=== PATIENT | female | born 1955 | race Caucasian/White ===

== ENCOUNTER 2019-01-02 05:43 | Emergency (ER) | payer BC, MEDICAID ==
[2019-01-02] MEDS ORDERED: Sulfamethoxazole/Trimethoprim 800-160 MG Tab PO ONE (05:44)
--- NOTE | 2019-01-02 06:42 | EDM.PDOC ---
ED HPI GENERAL MEDICAL PROBLEM - General Chief Complaint: Genitourinary Problem Stated Complaint: POSS UTI Time Seen by Provider: 01/02/19 06:10 Source of Information: Reports: Patient History Limitations: Reports: No Limitations - History of Present Illness INITIAL COMMENTS - FREE TEXT/NARRATIVE: Patient presents with concern for acute onset of constant urination, but only goes a little bit. Has to hurry to the bathroom when she feels need to go. Woke up with symptoms about 3 AM this morning. No previous history of UTIs. She has no vaginal discharge, no fever, no pain in her back, no nausea or vomiting. Notes that her urine is discolored and pink - Related Data Allergies Allergy/AdvReac Type Severity Reaction Status Date / Time cephalexin [From Keflex] Allergy Rash Verified 01/02/19 06:35 Home Meds: Home Meds Lisinopril [Prinivil] 40 mg PO DAILY 07/08/16 [History] Sertraline HCl 100 mg PO DAILY 07/08/16 [History] atorvaSTATin [Lipitor] 40 mg PO DAILY 07/08/16 [History] metFORMIN [Glucophage] 1,000 mg PO BID 07/08/16 [History] Aspirin [Adult Low Dose Aspirin EC] 81 mg PO DAILY 01/03/19 [History] Levothyroxine 200 mcg PO DAILY 01/03/19 [History] Past Medical History HEENT History: Reports: Cataract, Impaired Vision Cardiovascular History: Reports: High Cholesterol, Hypertension 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: , 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 Musculoskeletal History: Reports: Arthritis, Back Pain, Chronic Psychiatric History: Reports: Anxiety, Dementia Endocrine/Metabolic History: Reports: Diabetes, Type II - Infectious Disease History Infectious Disease History: Reports: Chicken Pox, Measles - Past Surgical History HEENT Surgical History: Reports: Other (See Below) Musculoskeletal Surgical History: Reports: Knee Replacement Social & Family History - Family History Family Medical History: Noncontributory - Tobacco Use Smoking Status *Q: Never Smoker - Caffeine Use Caffeine Use: Reports: Coffee, Soda, Tea - Alcohol Use Alcohol Use History: No - Recreational Drug Use Recreational Drug Use: No - Living Situation & Occupation Living situation: Reports: ED ROS GENERAL - Review of Systems Review Of Systems: ROS reveals no pertinent complaints other than HPI. ED EXAM, GENERAL - Physical Exam Exam: See Below Free Text/Narrative:: Gen.: Alert, pleasant no acute distress. Constantly in bathroom all here. No costovertebral angle tenderness. Lungs clear, heart regular, abdomen positive bowel sounds, soft nondistended nontender. Suprapubic discomfort with palpation Course - Vital Signs Text/Narrative:: Acute cystitis, urinalysis also shows potentially infected. Patient with a history of allergy to some kind of antibiotic, doesn't remember which one. Review chart, patient Keflex 3 years ago and when asked confirms that this is medication she got a bad rash from. No history of allergy to amoxicillin. Also no history of allergies to sulfa drugs. Will give take-home pack of Bactrim DS twice a day for 5 days. Advised could burr picker Pyridium at the pharmacy later today to help with the discomfort. Encouraged to drink lots of water, asked about cranberry which I would recommend the pills, not the juice given her diabetes. Discussed signs or symptoms that would probably need for immediate follow-up and all questions are answered. She is in agreement with this plan Last Recorded V/S: Last Vital Signs Temp 36.6 C 01/02/19 06:45 Pulse 79 01/02/19 06:45 Resp 18 01/02/19 06:45 BP 124/73 01/02/19 06:45 Pulse Ox 98 01/02/19 06:45 - Orders/Labs/Meds Labs: Laboratory Tests 01/02/19 Range/Units 05:50 Urine Color Red (YELLOW) Urine Appearance Slightly cloudy (CLEAR) Urine pH 5.0 (5.0-6.5) Ur Specific [place] 1.020 (1.010-1.025) Urine Protein 30 H (NEGATIVE) mg/dL Urine Glucose (UA) >1000 H (NORMAL) mg/dL Urine Ketones Negative (NEGATIVE) mg/dL Urine Occult Blood Large H (NEGATIVE) Urine Nitrite Negative (NEGATIVE) Urine Bilirubin Negative (NEGATIVE) Urine Urobilinogen Normal (NEGATIVE) mg/dL Ur Leukocyte Esterase Moderate H (NEGATIVE) Urine RBC Packed H (0-5) Urine WBC 10-20 H (0-5) Ur Squamous Epith Cells Rare (NS,R,O) Urine Bacteria Few H (NS) Departure - Departure Time of Disposition: 06:41 Disposition: Home, Self-Care 01 Condition: Good Clinical Impression: Cystitis - Discharge Information *PRESCRIPTION DRUG MONITORING PROGRAM REVIEWED*: Not Applicable *COPY OF PRESCRIPTION DRUG MONITORING REPORT IN PATIENT DOLORES: Not Applicable Instructions: Urinary Tract Infection, Adult, [id number], Sulfamethoxazole; Trimethoprim, SMX-TMP tablets Referrals: Lars Phillips MD [Primary Care Provider] - Forms: ED Department Discharge Additional Instructions: to help with symptoms: drink lots of water can try cranberry pills if want Pyridium (also called azo) is available over the counter at most pharmacies, it will turn your urine orange but numbs your bladder to help with symptoms
[2019-01-03 05:39] VITALS: BP 124/73
== END 2019-01-02 06:55 | disposition home or self-care (01) ==
LOC: FB.ED 05:43
DX: N30.00 Acute cystitis without hematuria (principal); E78.00 Pure hypercholesterolemia, unspecified; I10 Essential (primary) hypertension; F41.9 Anxiety disorder, unspecified; E11.9 Type 2 diabetes mellitus without complications; Z79.899 Other long term (current) drug therapy; Z79.82 Long term (current) use of aspirin; Z79.84 Long term (current) use of oral hypoglycemic drugs
CPT/HCPCS: 81001; 87086; 87088; 87186; 99283; A9270

== ENCOUNTER 2019-09-03 17:22 | Emergency (ER) | payer BC ==
[2019-09-03] MEDS ORDERED: Acetaminophen/HYDROcodone 325-5 MG Tab PO ONE (17:23)
[2019-09-03] MEDS ORDERED: Ondansetron 4 MG Tab.DIS PO ONE ×2 (17:23→18:29)
--- NOTE | 2019-09-03 17:51 | EDM.PDOC ---
ED HPI GENERAL MEDICAL PROBLEM - General Chief Complaint: Back Pain or Injury Stated Complaint: LOWER R SIDE BACK PAIN Time Seen by Provider: 09/03/19 17:48 Source of Information: Reports: Patient History Limitations: Reports: No Limitations - History of Present Illness INITIAL COMMENTS - FREE TEXT/NARRATIVE: 63-year-old female who reports she awoke from a nap approximate 4 PM today with pain in her right lower back right flank and radiating around to her right groin. It was a constant and somewhat sharp and cramping type of pain that seemed to wax and wane. She states that she could not really find a comfortable position. It did seem to be a little worse with movement and with palpation. She rated the pain at presentation here at a 6/10. She has had no nausea or vomiting. She has been able to eat and drink normally today. She has had no trauma. As reports that beginning yesterday she started having some feelings that she had to urinate more frequently and she had some discomfort with urination. She has had no hematuria. Other associated signs or symptoms. There are no other modifying factors. Onset: Other (Yesterday evening with urinary symptoms and today at 4 PM with the pain) Duration: Constant, Waxing/Waning Location: Reports: Abdomen, Back Quality: Reports: Pressure (And cramping), Sharp Severity: Moderate (to severe) Improves with: Reports: None Worsens with: Reports: Other (Palpation), Movement Context: Reports: Other (As above) Associated Symptoms: Reports: No Other Symptoms (Except as above) Treatments QA TEST ANALYST: Reports: Heat Therapy, NSAIDS (Naproxen) Right Lower Back Pain Score (Numeric/FACES): 6 - Related Data Allergies Allergy/AdvReac Type Severity Reaction Status Date / Time cephalexin [From Keflex] Allergy Rash Verified 01/02/19 06:35 Home Meds: Home Meds Lisinopril [Prinivil] 40 mg PO DAILY 07/08/16 [History] Sertraline HCl 100 mg PO DAILY 07/08/16 [History] atorvaSTATin [Lipitor] 40 mg PO DAILY 07/08/16 [History] metFORMIN [Glucophage] 1,000 mg PO BID 07/08/16 [History] Aspirin [Adult Low Dose Aspirin EC] 81 mg PO DAILY 01/03/19 [History] Levothyroxine 200 mcg PO DAILY 01/03/19 [History] Acetaminophen/HYDROcodone [[place] 325-5 MG] 1 - 2 tab PO Q6H PRN #8 tab 09/03/19 [Rx] Ciprofloxacin [Ciprofloxacin HCl] 500 mg PO BID 7 Days #14 tab 09/03/19 [Rx] Past Medical History HEENT History: Reports: Cataract, Impaired Vision Cardiovascular History: Reports: High Cholesterol, Hypertension 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 Musculoskeletal History: Reports: Arthritis, Back Pain, Chronic Psychiatric History: Reports: Anxiety, Depression Endocrine/Metabolic History: Reports: Diabetes, Type II Other Endocrine/Metabolic History: Takes thyroid medication. - Infectious Disease History Infectious Disease History: Reports: Chicken Pox, Measles - Past Surgical History GI Surgical History: Reports: Colonoscopy Female Surgical History: Reports: Tubal Ligation Musculoskeletal Surgical History: Reports: Knee Replacement (Left) Social & Family History - Tobacco Use Smoking Status *Q: Never Smoker - Caffeine Use Caffeine Use: Reports: Coffee, Soda, Tea - Alcohol Use Alcohol Use History: No - Living Situation & Occupation Living situation: Reports: ED ROS GENERAL - Review of Systems Review Of Systems: See Below Constitutional: Reports: No Symptoms HEENT: Reports: No Symptoms Respiratory: Reports: No Symptoms Cardiovascular: Reports: No Symptoms GI/Abdominal: Reports: Abdominal Pain. Denies: Diarrhea, Nausea, Vomiting : Reports: Dysuria, Flank Pain, Urgency. Denies: Hematuria Musculoskeletal: Reports: Back Pain Skin: Reports: No Symptoms Neurological: Reports: No Symptoms Hematologic/Lymphatic: Reports: No Symptoms Immunologic: Reports: No Symptoms ED EXAM,LOWER BACK PAIN/INJURY - Physical Exam Exam: See Below Exam Limited By: No Limitations General Appearance: Alert, WD/WN, Moderate Distress (Appears in some pain. She does appear nontoxic.) Eye Exam: Bilateral Eye: EOMI, Normal Inspection, PERRL Ears: Normal External Exam, Hearing Grossly Normal Nose: Normal Inspection, Normal Mucosa, No Blood Throat/Mouth: Normal Inspection, Normal Lips, Normal Oropharynx, Normal Voice, No Airway Compromise Head: Atraumatic, Normocephalic Neck: Normal Inspection, Supple, Non-Tender, Full Range of Motion Respiratory/Chest: No Respiratory Distress, Lungs Clear, Normal Breath Sounds, No Accessory Muscle Use, Chest Non-Tender Cardiovascular: Normal Peripheral Pulses, Regular Rate, Rhythm, No Murmur GI/Abdominal: Normal Bowel Sounds, Soft, No Organomegaly, Tender (Mildly tender in an area. No hernia.) Back Exam: CVA Tenderness (R) (Some tenderness along the right CVA area and just below it.). No: Muscle Spasm, Vertebral Tenderness Extremities: Normal Inspection, Normal Range of Motion, Non-Tender, No Pedal Edema, Normal Capillary Refill Neurological: Alert, Normal Dorsiflexion, CN II-XII Intact, Normal Plantar Flexion, Normal Gait, Normal Reflexes, No Motor/Sensory Deficits, Oriented x 3 Skin Exam: Warm, Dry, Intact, Normal Color, No Rash Course - Vital Signs Last Recorded V/S: Last Vital Signs Temp 36.7 C 09/03/19 17:42 Pulse 73 09/03/19 17:42 Resp 18 09/03/19 17:42 BP 132/92 H 09/03/19 17:42 Pulse Ox 100 09/03/19 17:42 - Orders/Labs/Meds Orders: Active Orders 24 hr Category Date Time Status Abdomen Pelvis wo Cont [CT] Stat Exams 09/03/19 18:02 Taken CULTURE URINE [RM] Stat Lab 09/03/19 19:29 Ordered Labs: Laboratory Tests 09/03/19 09/03/19 09/03/19 Range/Units 18:06 18:10 18:10 WBC 7.8 (4.5-12.0) X10-3/uL RBC 5.13 (3.23-5.20) x10(6)uL Hgb 15.6 H (11.5-15.5) g/dL Hct 45.0 (30.0-51.3) % MCV 87.7 (80-96) fL MCH 30.5 (27.7-33.6) pg MCHC 34.8 (32.2-35.4) g/dL RDW 12.9 (11.5-15.5) % Plt Count 182 (125-369) X10(3)uL MPV 8.4 (7.4-10.4) fL Neut % (Auto) 75.6 (46-82) % Lymph % (Auto) 20.6 (13-37) % Mckenzie % (Auto) 2.6 L (4-12) % Eos % (Auto) 1 (1.0-5.0) % Baso % (Auto) 0 (0-2) % Neut # (Auto) 5.9 (1.6-8.3) # Lymph # (Auto) 1.6 (0.6-5.0) # Mckenzie # (Auto) 0.2 (0.0-1.3) # Eos # (Auto) 0.1 (0.0-0.8) # Baso # (Auto) 0.0 (0.0-0.2) # Sodium 140 (135-145) mmol/L Potassium 3.9 (3.5-5.3) mmol/L Chloride 102 (100-110) mmol/L Carbon Dioxide 29 (21-32) mmol/L BUN 15 (7-18) mg/dL Creatinine 0.8 (0.55-1.02) mg/dL Est Cr Clr Drug Dosing 61.09 mL/min Estimated GFR (MDRD) > 60 (>60) BUN/Creatinine Ratio 18.8 (9-20) Glucose 261 H (80-116) mg/dL Calcium 8.9 (8.6-10.2) mg/dL Total Bilirubin 0.9 (0.1-1.3) mg/dL AST 15 (5-25) IU/L ALT 23 (12-36) U/L Alkaline Phosphatase 139 H (56-112) IU/L C-Reactive Protein (0.5-0.9) mg/dL Total Protein 7.2 (6.0-8.0) g/dL Albumin 4.0 (3.2-4.6) g/dL Globulin 3.2 g/dL Albumin/Globulin Ratio 1.3 Urine Color Yellow (YELLOW) Urine Appearance Clear (CLEAR) Urine pH 5.0 (5.0-6.5) Ur Specific [place] 1.010 (1.010-1.025) Urine Protein Negative (NEGATIVE) mg/dL Urine Glucose (UA) 100 H (NORMAL) mg/dL Urine Ketones Negative (NEGATIVE) mg/dL Urine Occult Blood Negative (NEGATIVE) Urine Nitrite Negative (NEGATIVE) Urine Bilirubin Negative (NEGATIVE) Urine Urobilinogen Normal (NEGATIVE) mg/dL Ur Leukocyte Esterase Small H (NEGATIVE) Urine RBC 0-5 (0-5) Urine WBC 0-5 (0-5) Ur Squamous Epith Cells Few H (NS,R,O) Urine Bacteria Rare H (NS) 09/03/19 Range/Units 18:10 WBC (4.5-12.0) X10-3/uL RBC (3.23-5.20) x10(6)uL Hgb (11.5-15.5) g/dL Hct (30.0-51.3) % MCV (80-96) fL MCH (27.7-33.6) pg MCHC (32.2-35.4) g/dL RDW (11.5-15.5) % Plt Count (125-369) X10(3)uL MPV (7.4-10.4) fL Neut % (Auto) (46-82) % Lymph % (Auto) (13-37) % Mckenzie % (Auto) (4-12) % Eos % (Auto) (1.0-5.0) % Baso % (Auto) (0-2) % Neut # (Auto) (1.6-8.3) # Lymph # (Auto) (0.6-5.0) # Mckenzie # (Auto) (0.0-1.3) # Eos # (Auto) (0.0-0.8) # Baso # (Auto) (0.0-0.2) # Sodium (135-145) mmol/L Potassium (3.5-5.3) mmol/L Chloride (100-110) mmol/L Carbon Dioxide (21-32) mmol/L BUN (7-18) mg/dL Creatinine (0.55-1.02) mg/dL Est Cr Clr Drug Dosing mL/min Estimated GFR (MDRD) (>60) BUN/Creatinine Ratio (9-20) Glucose (80-116) mg/dL Calcium (8.6-10.2) mg/dL Total Bilirubin (0.1-1.3) mg/dL AST (5-25) IU/L ALT (12-36) U/L Alkaline Phosphatase (56-112) IU/L C-Reactive Protein < 0.2 L (0.5-0.9) mg/dL Total Protein (6.0-8.0) g/dL Albumin (3.2-4.6) g/dL Globulin g/dL Albumin/Globulin Ratio Urine Color (YELLOW) Urine Appearance (CLEAR) Urine pH (5.0-6.5) Ur Specific [place] (1.010-1.025) Urine Protein (NEGATIVE) mg/dL Urine Glucose (UA) (NORMAL) mg/dL Urine Ketones (NEGATIVE) mg/dL Urine Occult Blood (NEGATIVE) Urine Nitrite (NEGATIVE) Urine Bilirubin (NEGATIVE) Urine Urobilinogen (NEGATIVE) mg/dL Ur Leukocyte Esterase (NEGATIVE) Urine RBC (0-5) Urine WBC (0-5) Ur Squamous Epith Cells (NS,R,O) Urine Bacteria (NS) Meds: Medications Discontinued Medications Generic Name Dose Route Start Last Admin Trade Name Freq PRN Reason Stop Dose Admin Ciprofloxacin 500 mg 09/03/19 19:30 09/03/19 19:51 Ciprofloxacin Hcl PO 09/03/19 19:31 500 mg ONETIME ONE Administration Morphine Sulfate 10 mg 09/03/19 18:29 09/03/19 18:34 Morphine IM 09/03/19 18:30 10 mg ONETIME ONE Administration Ondansetron HCl 4 mg 09/03/19 18:29 09/03/19 18:34 Zofran Odt PO 09/03/19 18:30 4 mg ONETIME ONE Administration - Radiology Interpretation Free Text/Narrative:: CT scan of abdomen and pelvis showed diffuse colonic fecal retention, a normal- appearing appendix and no evidence of urinary tract stones. - Re-Assessments/Exams Free Text/Narrative Re-Assessment/Exam: 09/03/19 19:35: The patient CT scan shows no evidence of kidney stone/ureteral stone. Her urine did have some evidence of infection and I sent the urine for culture. She has been having some urinary symptoms. I am unsure why the patient is having the pain radiating from her back to her right groin. It could be musculoskeletal in nature. It could also be a urinary tract infection. It could also be that she had a small kidney stone that has passed. The patient was given morphine 10 mg IM in the emergency department and she has had good reduction in her pain. I will place the patient on ciprofloxacin 500 mg twice a day for 7 days to treat for a potential infection. I will also give the patient hydrocodone 5/325 that she may use for moderate to severe pain. She should also take ibuprofen 600 mg by mouth every 6 hours as needed for pain. She should also follow-up with her primary doctor. 09/03/19 20:00: Patient was being discharged and she developed nausea with vomiting. I will give the patient Phenergan IM and will send her home with a Zofran take-home pack. Departure - Departure Time of Disposition: 19:50 Disposition: Home, Self-Care 01 Condition: Good Clinical Impression: Right flank pain Lower back pain Qualifiers: Chronicity: acute Back pain laterality: right Sciatica presence: unspecified whether sciatica present Qualified Code(s): M54.5 - Low back pain UTI (urinary tract infection) Qualifiers: Urinary tract infection type: site unspecified Hematuria presence: with hematuria Qualified Code(s): N39.0 - Urinary tract infection, site not specified - Discharge Information Prescriptions: Acetaminophen/HYDROcodone [[place] 325-5 MG] 1 - 2 tab PO Q6H PRN #8 tab PRN Reason: Moderate to severe pain Ciprofloxacin [Ciprofloxacin HCl] 500 mg PO BID 7 Days #14 tab Instructions: Urinary Tract Infection, Adult, [id number], Flank Pain, Adult, [id number] Referrals: Lars Phillips MD [Primary Care Provider] - Forms: ED Department Discharge Additional Instructions: Your blood tests were reassuringly normal except for your blood glucose which was 261. Your urine test showed some evidence of infection and I sent it for culture. The CT scan of your abdomen and pelvis showed no definite abnormality. It did suggest that you had constipation but there was no evidence of kidney stones or appendicitis. I am unsure why you are having the pain. This could be related to a urinary tract infection. It could also be the you had a kidney stone but passed it already. It could also be related to some problem in your back causing pain to go from your back to your right groin area. No strenuous activity for the next few days. Increase your fluid intake. You may take ibuprofen 600 mg by mouth every 6 hours as needed for pain. Medication as prescribed (ciprofloxacin 500 mg, hydrocodone 5/325). Follow-up with your primary doctor if you or having persisting symptoms. Back to the emergency department for fever, worsening abdominal pain, unrelenting vomiting or any other concerning sign or symptom. Sepsis Event Note - Evaluation Sepsis Screening Result: No Definite Risk - Focused Exam Vital Signs: Vital Signs Temp Pulse Resp BP Pulse Ox 09/03/19 17:42 36.7 C 73 18 132/92 H 100 Date Exam was Performed: 09/03/19 Time Exam was Performed: 19:58 - My Orders Last 24 Hours: My Active Orders 09/03/19 18:02 Abdomen Pelvis wo Cont [CT] Stat 09/03/19 19:29 CULTURE URINE [RM] Stat - Assessment/Plan Last 24 Hours: My Active Orders 09/03/19 18:02 Abdomen Pelvis wo Cont [CT] Stat 09/03/19 19:29 CULTURE URINE [RM] Stat
[2019-09-03] MEDS ORDERED: Morphine 10 MG/ML SDV IM ONE (18:29)
[2019-09-03] MEDS ORDERED: Ciprofloxacin 500 MG Tab PO ONE (19:30)
[2019-09-03] MEDS ORDERED: Promethazine 25 MG/ML SDV IM ONE (20:05)
[2019-09-03 20:22] VITALS: BP 133/68; PULSE 68
== END 2019-09-03 20:19 | disposition home or self-care (01) ==
LOC: FB.ED 17:22
DX: N39.0 Urinary tract infection, site not specified (principal); M54.5 Low back pain; E78.00 Pure hypercholesterolemia, unspecified; I10 Essential (primary) hypertension; E11.36 Type 2 diabetes mellitus with diabetic cataract; H26.9 Unspecified cataract; F32.9 Major depressive disorder, single episode, unspecified; F41.9 Anxiety disorder, unspecified; Z88.1 Allergy status to other antibiotic agents; Z79.899 Other long term (current) drug therapy; Z79.84 Long term (current) use of oral hypoglycemic drugs; Z79.82 Long term (current) use of aspirin
CPT/HCPCS: 36415; 74176; 80053; 81001; 85025; 86140; 87086; 96372; 99284; A9270; J2270; J2550

== ENCOUNTER 2022-06-09 10:40 | Emergency (ER) | payer BC, MEDICAID ==
[2022-06-09] MEDS ORDERED: Lactated Ringers 1,000 ML IV ONE (10:50)
[2022-06-09] MEDS ORDERED: hydrOXYzine HCl 50 MG/ML SDV IM ONE (10:50)
[2022-06-09 11:19] LABS: ESTIMATED GFR 82 mL/min (>60)
[2022-06-09] MEDS ORDERED: Glucagon,Human Recombinant 1 MG Vial IM PRN ×2 (11:22→12:54)
[2022-06-09] MEDS ORDERED: Insulin Regular, Human 100 Units/ML 3 ML Vial SUBCUT ONE ×2 (11:22→12:54)
[2022-06-09] MEDS ORDERED: 50% Dextrose in Water 50 ML Syringe IVPUSH PRN ×2 (11:22→12:54)
[2022-06-09 13:31] VITALS: BP 148/72; PULSE 86
== END 2022-06-09 13:48 | disposition home or self-care (01) ==
LOC: FB.ED 10:40
DX: H83.09 Labyrinthitis, unspecified ear (principal); E11.65 Type 2 diabetes mellitus with hyperglycemia; E78.00 Pure hypercholesterolemia, unspecified; I10 Essential (primary) hypertension; M19.90 Unspecified osteoarthritis, unspecified site; Z88.1 Allergy status to other antibiotic agents; Z79.82 Long term (current) use of aspirin; Z79.84 Long term (current) use of oral hypoglycemic drugs; Z79.899 Other long term (current) drug therapy
CPT/HCPCS: 36415; 70450; 80048; 82947; 85027; 96361; 96372; 96374; 99285-25; J1815-GY; J3360; J3410; J7120

== ENCOUNTER 2023-03-23 10:14 | Emergency (ER) | payer BC ==
[2023-03-23 10:49] LABS: BASOPHILS PERCENT AUTO 0.4 % (0.2-1.5); EOSINOPHILS PERCENT AUTO 0.6 % (0.6-8.1); HEMATOCRIT 40.8 % (34.2-48.2); HEMOGLOBIN 14.6 g/dL (11.4-15.5); LYMPHOCYTES ABSOLUTE AUTO 1.6 x10-3/uL (1.0-4.4); LYMPHOCYTES PERCENT AUTO 21.4 % (18.4-52.1); MEAN CORPUSCULAR HEMOGLOBIN 31.3 pg (23.9-33.9); MEAN CORPUSCULAR HGB CONC 35.9 g/dL (31.9-34.8); MEAN CORPUSCULAR VOLUME 87.3 fL (76.7-100.5); MEAN PLATELET VOLUME 9.1 fL (7.1-12.4); MONOCYTES ABSOLUTE AUTO 0.3 x10-3/uL (0.3-1.0); MONOCYTES PERCENT AUTO 4.1 % (4.4-15.7); NEUTROPHILS ABSOLUTE AUTO 5.5 x10-3/uL (1.5-6.3); NEUTROPHILS PERCENT AUTO 73.5 % (30.8-76.2); PLATELET COUNT,PLT 157 x10(3)uL (151-488); RED BLOOD CELL COUNT 4.67 x10(6)uL (3.60-5.20); RED CELL DISTRIBUTION WIDTH 13.8 % (12.3-16.5); WHITE BLOOD CELL COUNT,WBC 7.5 x10-3/uL (3.0-10.3)
[2023-03-23 10:56] LABS: INR 1.01 (1.00-1.24); PROTHROMBIN TIME 10.4 sec (9.0-11.1)
[2023-03-23 10:57] LABS: A/G RATIO 1.1; ALANINE AMINOTRANSFERASE,ALT 22 U/L (12-36); ALBUMIN 3.7 g/dL (3.2-4.6); ALKALINE PHOSPHATASE 166 IU/L (56-112); ASPARTATE AMNIOTRANSFERASE,AST 14 IU/L (5-25); BILIRUBIN TOTAL 1.3 mg/dL (0.1-1.3); BLOOD UREA NITROGEN,BUN 16 mg/dL (7-18); CALCIUM 9.4 mg/dL (8.6-10.2); CARBON DIOXIDE,CO2 26 mmol/L (21-32); CHLORIDE,CL 99 mmol/L (100-110); CREATININE 0.8 mg/dL (0.55-1.02); ESTIMATED GFR 82 mL/min (>60); POTASSIUM,K 4.1 mmol/L (3.5-5.3); PROTEIN TOTAL,TP 7.1 g/dL (6.0-8.0); SODIUM,NA 135 mmol/L (135-145)
[2023-03-23 10:58] LABS: PTT,PARTIAL THROMBOPLSTIN TIME 23.5 SECONDS (24.4-33.2)
[2023-03-23 10:59] LABS: GLUCOSE RANDOM 445 mg/dL (80-116)
[2023-03-23 16:52] VITALS: BP 181/86; PULSE 90
== END 2023-03-23 12:08 ==
LOC: FB.ED 10:14
DX: I63.9 Cerebral infarction, unspecified (principal); I10 Essential (primary) hypertension; E78.5 Hyperlipidemia, unspecified; M19.90 Unspecified osteoarthritis, unspecified site; E11.9 Type 2 diabetes mellitus without complications; Z88.1 Allergy status to other antibiotic agents; Z88.2 Allergy status to sulfonamides; Z79.899 Other long term (current) drug therapy; Z79.82 Long term (current) use of aspirin; Z79.84 Long term (current) use of oral hypoglycemic drugs
CPT/HCPCS: 36415; 70450; 71045; 80053; 84484; 85025; 85610; 85730; 93005; 99285

== ENCOUNTER 2023-10-29 11:50 | Emergency (ER) | payer MEDICARE, BC ==
[2023-10-29 12:16] LABS: BASOPHILS PERCENT AUTO 0.4 % (0.2-1.5); EOSINOPHILS ABSOLUTE AUTO 0.1 x10-3/uL (0.0-0.8); HEMATOCRIT 38.6 % (34.2-48.2); HEMOGLOBIN 13.4 g/dL (11.4-15.5); LYMPHOCYTES ABSOLUTE AUTO 1.6 x10-3/uL (1.0-4.4); MEAN CORPUSCULAR HEMOGLOBIN 32.3 pg (23.9-33.9); MEAN CORPUSCULAR HGB CONC 34.7 g/dL (31.9-34.8); MEAN CORPUSCULAR VOLUME 93.2 fL (76.7-100.5); MONOCYTES ABSOLUTE AUTO 0.3 x10-3/uL (0.3-1.0); MONOCYTES PERCENT AUTO 4.1 % (4.4-15.7); NEUTROPHILS ABSOLUTE AUTO 5.8 x10-3/uL (1.5-6.3); NEUTROPHILS PERCENT AUTO 73.5 % (30.8-76.2); PLATELET COUNT,PLT 129 x10(3)uL (151-488); RED BLOOD CELL COUNT 4.15 x10(6)uL (3.60-5.20); RED CELL DISTRIBUTION WIDTH 15.6 % (12.3-16.5); WHITE BLOOD CELL COUNT,WBC 7.8 x10-3/uL (3.0-10.3)
[2023-10-29 12:19] LABS: BLOOD UREA NITROGEN,BUN 16 mg/dL (7-18); CALCIUM 9.1 mg/dL (8.6-10.2); CARBON DIOXIDE,CO2 31 mmol/L (21-32); CHLORIDE,CL 101 mmol/L (100-110); CREATININE 0.8 mg/dL (0.55-1.02); EST CRCL DRUG DOSING (CG) 57.99 mL/min; ESTIMATED GFR 82 mL/min (>60); GLUCOSE RANDOM 173 mg/dL (80-116); POTASSIUM,K 3.7 mmol/L (3.5-5.3); SODIUM,NA 139 mmol/L (135-145)
[2023-10-29 12:23] LABS: INR 1.03 (1.00-1.24); PROTHROMBIN TIME 10.7 sec (9.0-11.1)
[2023-10-29 12:24] LABS: A/G RATIO 0.8; ALANINE AMINOTRANSFERASE,ALT 64 U/L (12-36); ALBUMIN 3.3 g/dL (3.2-4.6); ALKALINE PHOSPHATASE 283 IU/L (56-112); ASPARTATE AMNIOTRANSFERASE,AST 42 IU/L (5-25); BILIRUBIN TOTAL 0.9 mg/dL (0.1-1.3); PROTEIN TOTAL,TP 7.4 g/dL (6.0-8.0)
[2023-10-29 12:25] LABS: PTT,PARTIAL THROMBOPLSTIN TIME 27.4 SECONDS (24.4-33.2)
[2023-10-29 12:31] LABS: TROPONIN I 5.3 pg/mL (4.0-60.3)
[2023-10-29] MEDS: Aspirin 81 MG Tab.Chew PO STA (12:33)
[2023-10-29 12:43] VITALS: BP 161/83; PULSE 84
== END 2023-10-29 12:50 | disposition home or self-care (01) ==
LOC: FB.ED 11:50
DX: R07.2 Precordial pain (principal); I10 Essential (primary) hypertension; E11.9 Type 2 diabetes mellitus without complications; E78.00 Pure hypercholesterolemia, unspecified; Z88.1 Allergy status to other antibiotic agents; Z88.2 Allergy status to sulfonamides; Z79.899 Other long term (current) drug therapy; Z79.82 Long term (current) use of aspirin; Z79.51 Long term (current) use of inhaled steroids; Z79.84 Long term (current) use of oral hypoglycemic drugs; Z79.4 Long term (current) use of insulin
CPT/HCPCS: 36415; 71045; 80053; 83880; 84484; 85025; 85379; 85610; 85730; 93005; 93010; 99283; 99285; A9270-GY

== ENCOUNTER 2025-06-17 21:19 | Emergency (ER) | payer BC, MEDICARE ==
[2025-06-17] MEDS: Insulin Regular, Human 100 Units/ML 10 ML Vial SUBCUT ONE (22:10)
[2025-06-17 23:29] VITALS: BP 148/91; PULSE 62
== END 2025-06-17 23:15 | disposition home or self-care (01) ==
LOC: FB.ED 21:19
DX: E11.65 Type 2 diabetes mellitus with hyperglycemia (principal); B37.31 Acute candidiasis of vulva and vagina; I10 Essential (primary) hypertension; E78.00 Pure hypercholesterolemia, unspecified; Z86.73 Personal history of transient ischemic attack (TIA), and cerebral infarction without residual deficits; Z79.84 Long term (current) use of oral hypoglycemic drugs; Z79.82 Long term (current) use of aspirin; Z79.890 Hormone replacement therapy; Z88.2 Allergy status to sulfonamides; Z88.1 Allergy status to other antibiotic agents
CPT/HCPCS: 82947; 99284; A9270

== ENCOUNTER 2025-06-19 06:22 | Emergency (ER) | payer MEDICARE ==
[2025-06-19] MEDS ORDERED: Sodium Chloride 0.9% 10 ML Syringe FLUSH PRN (06:43)
[2025-06-19] MEDS: Ondansetron 4 MG/2 ML SDV IVPUSH ONE (07:00)
[2025-06-19 07:02] LABS: BASOPHILS ABSOLUTE AUTO 0.0 x10-3/uL (0.0-0.1); BASOPHILS PERCENT AUTO 0.4 % (0.2-1.5); EOSINOPHILS ABSOLUTE AUTO 0.0 x10-3/uL (0.0-0.8); EOSINOPHILS PERCENT AUTO 1.0 % (0.6-8.1); LYMPHOCYTES ABSOLUTE AUTO 1.5 x10-3/uL (1.0-4.4); LYMPHOCYTES PERCENT AUTO 34.2 % (18.4-52.1); MEAN PLATELET VOLUME 8.2 fL (7.1-12.4); MONOCYTES ABSOLUTE AUTO 0.2 x10-3/uL (0.3-1.0); MONOCYTES PERCENT AUTO 4.3 % (4.4-15.7); NEUTROPHILS ABSOLUTE AUTO 2.7 x10-3/uL (1.5-6.3); NEUTROPHILS PERCENT AUTO 60.1 % (30.8-76.2); PLATELET COUNT,PLT 113 x10(3)uL (151-488); RED BLOOD CELL COUNT 3.53 x10(6)uL (3.60-5.20); RED CELL DISTRIBUTION WIDTH 13.9 % (12.3-16.5); WHITE BLOOD CELL COUNT,WBC 4.4 x10-3/uL (3.0-10.3)
[2025-06-19 07:06] LABS: BLOOD UREA NITROGEN,BUN 9 mg/dL (7-18); CARBON DIOXIDE,CO2 26 mmol/L (21-32); CHLORIDE,CL 110 mmol/L (100-110); CREATININE 0.7 mg/dL (0.55-1.02); EST CRCL DRUG DOSING (CG) 64.51 mL/min; ESTIMATED GFR 95 mL/min (>60); GLUCOSE RANDOM 197 mg/dL (80-116); POTASSIUM,K 3.0 mmol/L (3.5-5.3); SODIUM,NA 143 mmol/L (135-145)
[2025-06-19 07:12] LABS: A/G RATIO 1.0; ALANINE AMINOTRANSFERASE,ALT 22 U/L (12-36); ASPARTATE AMNIOTRANSFERASE,AST 12 IU/L (5-25); BILIRUBIN TOTAL 1.0 mg/dL (0.1-1.3); PROTEIN TOTAL,TP 5.1 g/dL (6.0-8.0)
[2025-06-19 07:18] LABS: LACTIC ACID 0.8 mmol/L (0.4-2.0)
[2025-06-19 07:20] LABS: PRO B-TYPE NATRIUR PEPT,BNPPRO 52 pg/mL (<=125)
[2025-06-19] MEDS: Potassium Chloride 20 MEQ Tab.ER PO ONE (07:59)
[2025-06-19 08:05] LABS: GLUCOSE,URINE 250 mg/dL (NORMAL); OCCULT BLOOD,URINE NEGATIVE (NEGATIVE)
[2025-06-19 08:14] LABS: APPEARANCE,URINE SLIGHTLY CLOUDY (CLEAR); EPITHELIAL CELLS,URINE MANY
[2025-06-19 10:22] VITALS: BP 110/70; PULSE 68
== END 2025-06-19 10:15 | disposition home or self-care (01) ==
LOC: FB.ED 06:22
DX: E11.9 Type 2 diabetes mellitus without complications (principal); E87.6 Hypokalemia; N39.0 Urinary tract infection, site not specified; I10 Essential (primary) hypertension; E78.00 Pure hypercholesterolemia, unspecified; Z86.73 Personal history of transient ischemic attack (TIA), and cerebral infarction without residual deficits; Z88.2 Allergy status to sulfonamides; Z88.1 Allergy status to other antibiotic agents; Z79.899 Other long term (current) drug therapy; Z79.84 Long term (current) use of oral hypoglycemic drugs; Z79.82 Long term (current) use of aspirin
CPT/HCPCS: 36415; 71045; 80053; 81001; 83036; 83605; 83880; 84443; 84484; 85025; 86140; 87086; 87088; 87186; 93005; 93010; 96361; 96374; 99284; A9270; J2405; J7030